=== PATIENT | female | born 2000 | race Caucasian/White ===

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

== ENCOUNTER 2023-09-21 08:55 | Emergency (ER) | payer SELFPAY ==
[2023-09-21 09:03] VITALS: BMI 23.9
[2023-09-21] MEDS ORDERED: ACETAMINOPHEN INJECTION 100 ML IVPB ONE (09:33)
[2023-09-21] MEDS: ACETAMINOPHEN 1000 MG/100 ML BAG IVPB ONE (09:47)
[2023-09-21] MEDS: SODIUM CHLORIDE 1,000 ML IV STA ×2 (09:47→11:47)
[2023-09-21] MEDS ORDERED: KETOROLAC TROMETHAMINE 30 MG/1 ML VIAL ONE ×2 (09:49→10:27)
[2023-09-21 09:59] LABS: BASO % 0.5 % (0-2.0); HEMATOCRIT 35.8 % (32.4-45.2); HEMOGLOBIN 11.5 GM/dL (10.7-15.3); MCHC 32.2 g/dl (32.0-36.0); MEAN CELL VOLUME 83.7 fl (80-96); MEAN PLT VOLUME 9.1 fl (7.5-11.1); MONO % 11.4 % (3.8-10.2); NEUT % 76.1 % (42.8-82.8); PLATELET COUNT 209 10^3/uL (134-434); RBC 4.28 M/mm3 (3.60-5.2); WHITE BLOOD COUNT 12.9 K/mm3 (4.0-10.0)
[2023-09-21 10:21] LABS: POTASSIUM 4.2 mmol/L (3.5-5.1)
[2023-09-21 10:23] LABS: CALCIUM 8.8 mg/dL (8.5-10.1)
[2023-09-21 10:24] LABS: ALBUMIN 3.5 g/dl (3.4-5.0); BLOOD UREA NITROGEN 7.9 mg/dL (7-18)
[2023-09-21 10:27] LABS: CREATININE 0.8 mg/dL (0.55-1.3)
[2023-09-21 10:28] LABS: BILIRUBIN,TOTAL 0.4 mg/dL (0.2-1); TOT PROT 7.6 g/dl (6.4-8.2)
[2023-09-21] MEDS: KETOROLAC TROMETHAMINE 30 MG/1 ML VIAL IVPUSH ONE (10:30)
[2023-09-21 10:33] LABS: EPI CELLS 21 /uL (0-25.1); HYALINE CASTS 2 /uL (0-3.1); PH,URINE 6.5 (5.0-8.0); URINE APPEARANCE CLEAR; URINE BACTERIA 11 /uL (0-1359); URINE BILIRUBIN NEGATIVE (NEGATIVE); URINE COLOR YELLOW; URINE GLUCOSE (UA) NEGATIVE (NEGATIVE); URINE KETONE 3+ (NEGATIVE); URINE LEUK ESTERASE NEGATIVE (NEGATIVE); URINE NITRITE NEGATIVE (NEGATIVE); URINE PROTEIN 2+ (NEGATIVE); URINE RBC 28 /uL (0-23.9); URINE WBC 31 /uL (0-25.8)
[2023-09-21 10:35] LABS: HCG,QUALITATIVE URINE Negative
[2023-09-21 11:22] VITALS: TEMP 97
[2023-09-21 13:12] VITALS: BP 102/64; PULSE 73; RESP 16
[2023-09-21] MEDS ORDERED: CEFTRIAXONE 1 GM/50 ML BAG ONE (13:13)
[2023-09-21] MEDS: CEFTRIAXONE 1 GM in DEXTROSE 5%-WATER - 100 ML IVPB ONE (13:21)
== END 2023-09-21 14:22 | disposition home or self-care (01) ==
LOC: JER 08:55
PROC: 3E03329 Introduction of Other Anti-infective into Peripheral Vein, Percutaneous Approach (ICD-10-PCS; principal; 2023-09-21)
PROC: 3E030NZ Introduction of Analgesics, Hypnotics, Sedatives into Peripheral Vein, Open Approach (ICD-10-PCS; 2023-09-21)
PROC: 3E0337Z Introduction of Electrolytic and Water Balance Substance into Peripheral Vein, Percutaneous Approach (ICD-10-PCS; 2023-09-21)
PROC: 3E0337Z Introduction of Electrolytic and Water Balance Substance into Peripheral Vein, Percutaneous Approach (ICD-10-PCS; 2023-09-21)
DX: R56.9 Unspecified convulsions (principal); J02.0 Streptococcal pharyngitis; R50.9 Fever, unspecified; R42 Dizziness and giddiness; R51.9 Headache, unspecified; Z20.822 Contact with and (suspected) exposure to COVID-19
CPT/HCPCS: 0241U-QW; 36415; 70450-TC; 71045-TC-FY; 80053; 81003; 84703; 85025; 87086; 93005; 93010; 99285-25; J0131